=== PATIENT | male | born 1960 | race Caucasian/White ===

== ENCOUNTER 2017-02-25 09:31 | Emergency (ER) | payer MEDICARE, MEDICAID ==
[~2017-02-25] VITALS: Ht 182.9 cm; Wt 68.0 kg
[~2017-02-25 09:31] MED LIST: ALB0.5UD IH; BUDE10.2 INH; ESCI10TA54 PO; HYDR-569 PO; IPRA4AER IH; METH500T6 PO; METO25TA6 PO; OSC500T PO
[2017-02-25 10:37] LABS: BASOPHILS % (AUTO) 0.4 % (0-1); EOSINOPHILS # (AUTO) 0.1 X10'3 (0-0.9); EOSINOPHILS % (AUTO) 0.9 % (0-6); HEMATOCRIT 43.5 % (42.0-52.0); HEMOGLOBIN 14.8 g/dl (14.0-17.9); LYMPHOCYTES # (AUTO) 1.1 X10'3 (1.1-4.8); LYMPHOCYTES % (AUTO) 12.2 % (21-51); MEAN CORPUSCULAR HEMOGLOBIN 33.3 PG (27.0-31.0); MEAN CORPUSCULAR HGB CONC 34.1 % (33.0-36.5); MEAN CORPUSCULAR VOLUME 97.8 FL (78-98); MEAN PLATELET VOLUME 7.9 FL (7.4-10.4); MONOCYTES # (AUTO) 0.9 X10'3 (0-0.9); MONOCYTES % (AUTO) 10.2 % (2-12); NEUTROPHILS # (AUTO) 6.7 X10'3 (1.8-7.7); NEUTROPHILS % (AUTO) 76.3 % (42-75); PLATELET COUNT 201 X10'3 (140-440); RED BLOOD COUNT 4.45 X10'6 (4.70-6.10); RED CELL DISTRIBUTION WIDTH 13.8 % (11.5-14.5); WHITE BLOOD COUNT 8.8 X10'3 (4.5-11.0)
[2017-02-25 10:49] LABS: ALANINE AMINOTRANSFERASE 145 U/L (12-78); ALBUMIN 3.7 G/DL (3.4-5.0); ALBUMIN/GLOBULIN RATIO 0.9 (1.1-1.5); ALKALINE PHOSPHATASE 70 IU/L (46-116); ANION GAP 12 (8-16); ASPARTATE AMINO TRANSFERASE 196 U/L (10-37); BILIRUBIN,TOTAL 0.4 MG/DL (0.1-1.0); BLOOD UREA NITROGEN 12 MG/DL (7-18); BUN/CREATININE RATIO 13.3 (5.4-32.0); CALCIUM 8.5 MG/DL (8.5-10.1); CHLORIDE 99 MMOL/L (99-107); GLUCOSE 248 MG/DL (70-104); POTASSIUM 3.7 MMOL/L (3.5-5.1); SODIUM 138 MMOL/L (135-145); TOTAL CARBON DIOXIDE 27.4 MMOL/L (24-32); TOTAL PROTEIN 7.7 G/DL (6.4-8.2); eGFR 87 ML/MIN
[2017-02-25 10:57] LABS: LIPASE 71 U/L (73-393); MAGNESIUM 1.7 MG/DL (1.5-2.4)
[2017-02-25 12:13] VITALS: BP 139/86
== END 2017-02-25 12:33 | disposition home or self-care (01) ==
LOC: ER 09:32
DX: E16.2 Hypoglycemia, unspecified (principal); I10 Essential (primary) hypertension; I25.10 Atherosclerotic heart disease of native coronary artery without angina pectoris; I25.2 Old myocardial infarction; J43.9 Emphysema, unspecified; G89.29 Other chronic pain; F10.10 Alcohol abuse, uncomplicated; F17.200 Nicotine dependence, unspecified, uncomplicated; I42.2 Other hypertrophic cardiomyopathy; F12.10 Cannabis abuse, uncomplicated; F15.10 Other stimulant abuse, uncomplicated; Z85.9 Personal history of malignant neoplasm, unspecified; Z56.0 Unemployment, unspecified; Z79.899 Other long term (current) drug therapy; Z86.19 Personal history of other infectious and parasitic diseases
CPT/HCPCS: 36415; 80053; 83690; 83735; 83880; 84484; 85025; 93005; 99285

== ENCOUNTER 2017-06-25 08:40 | Emergency (ER) | payer MEDICARE, MEDICAID ==
[~2017-06-25] VITALS: Ht 185.4 cm; Wt 70.0 kg
[2017-06-25] MEDS ORDERED: thiamine 100mg/ml 2ml inj. IV ONE (08:45)
[2017-06-25] MEDS ORDERED: normal saline 1000ML IV soln IVB ONE (08:45)
[2017-06-25] MEDS ORDERED: folic acid 1mg/0.2ml inj IV ONE (08:45)
[2017-06-25 09:04] LABS: BASOPHILS % (AUTO) 0.4 % (0-1); EOSINOPHILS # (AUTO) 0.3 X10'3 (0-0.9); EOSINOPHILS % (AUTO) 2.4 % (0-6); HEMATOCRIT 46.9 % (42.0-52.0); HEMOGLOBIN 16.1 g/dl (14.0-17.9); LYMPHOCYTES # (AUTO) 2.7 X10'3 (1.1-4.8); LYMPHOCYTES % (AUTO) 25.1 % (21-51); MEAN CORPUSCULAR HEMOGLOBIN 33.9 PG (27.0-31.0); MEAN CORPUSCULAR HGB CONC 34.3 % (33.0-36.5); MEAN CORPUSCULAR VOLUME 98.8 FL (78-98); MEAN PLATELET VOLUME 7.5 FL (7.4-10.4); MONOCYTES # (AUTO) 0.5 X10'3 (0-0.9); NEUTROPHILS # (AUTO) 7.3 X10'3 (1.8-7.7); NEUTROPHILS % (AUTO) 67.1 % (42-75); PLATELET COUNT 304 X10'3 (140-440); RED BLOOD COUNT 4.75 X10'6 (4.70-6.10); RED CELL DISTRIBUTION WIDTH 14.8 % (11.5-14.5); WHITE BLOOD COUNT 10.9 X10'3 (4.5-11.0)
[2017-06-25 09:08] VITALS: BP 162/81
[2017-06-25 09:18] LABS: ALANINE AMINOTRANSFERASE 116 U/L (12-78); ALBUMIN 4.1 G/DL (3.4-5.0); ALBUMIN/GLOBULIN RATIO 1.1 (1.1-1.5); ALKALINE PHOSPHATASE 64 IU/L (46-116); ANION GAP 9 (8-16); ASPARTATE AMINO TRANSFERASE 266 U/L (10-37); BILIRUBIN,TOTAL 0.6 MG/DL (0.1-1.0); BLOOD UREA NITROGEN 11 MG/DL (7-18); BUN/CREATININE RATIO 10.7 (5.4-32.0); CALCIUM 8.6 MG/DL (8.5-10.1); CHLORIDE 103 MMOL/L (99-107); CREATININE 1.03 MG/DL (0.60-1.10); ETHANOL 0.223 GM/DL (0.0-0.010); GLUCOSE 73 MG/DL (70-104); LIPASE 87 U/L (73-393); POTASSIUM 3.8 MMOL/L (3.5-5.1); SODIUM 142 MMOL/L (135-145); TOTAL CARBON DIOXIDE 30.5 MMOL/L (24-32); TOTAL PROTEIN 7.7 G/DL (6.4-8.2); eGFR 74 ML/MIN
== END 2017-06-25 11:50 | disposition home or self-care (01) ==
LOC: ER 08:40
DX: F10.120 Alcohol abuse with intoxication, uncomplicated (principal); E11.649 Type 2 diabetes mellitus with hypoglycemia without coma; I25.10 Atherosclerotic heart disease of native coronary artery without angina pectoris; I10 Essential (primary) hypertension; I25.2 Old myocardial infarction; J44.9 Chronic obstructive pulmonary disease, unspecified; G89.29 Other chronic pain; F12.10 Cannabis abuse, uncomplicated; F15.10 Other stimulant abuse, uncomplicated; Z56.0 Unemployment, unspecified
CPT/HCPCS: 36415; 80053; 80178; 80320; 82140; 82948; 83690; 85025; 93005; 96361; 96374; 96375; 99285; J3411; J3490

== ENCOUNTER 2017-09-17 12:00 | Emergency (ER) | payer MEDICARE, MEDICAID ==
[~2017-09-17] VITALS: Ht 185.4 cm; Wt 72.5 kg
[~2017-09-17 12:00] MED LIST changes: -HYDR-569 PO
[2017-09-17 12:18] VITALS: BP 140/80
[2017-09-17] MEDS ORDERED: SULF1TAB49 PO (12:25)
== END 2017-09-17 12:32 | disposition home or self-care (01) ==
LOC: ER 12:01
DX: L08.9 Local infection of the skin and subcutaneous tissue, unspecified (principal); I25.10 Atherosclerotic heart disease of native coronary artery without angina pectoris; I25.2 Old myocardial infarction; J44.9 Chronic obstructive pulmonary disease, unspecified; G89.29 Other chronic pain; I10 Essential (primary) hypertension; F12.90 Cannabis use, unspecified, uncomplicated; F15.90 Other stimulant use, unspecified, uncomplicated; Z56.0 Unemployment, unspecified; Z98.890 Other specified postprocedural states; Z79.899 Other long term (current) drug therapy
CPT/HCPCS: 99283

== ENCOUNTER 2018-05-29 14:27 | Outpatient (CLI) | payer MEDICARE, MEDICAID ==
[2018-05-29] MEDS ORDERED: ALPR-624 PO (16:44)
[2018-05-29] MEDS ORDERED: PREG50CA PO (16:44)
[2018-05-29] MEDS ORDERED: METO25TA6 PO (16:44)
[2018-05-29] MEDS ORDERED: CARB1TAB23 PO (16:44)
[2018-05-29] MEDS ORDERED: TRAZ-219 PO (16:44)
[2018-05-29] MEDS ORDERED: DICL75TA5 PO (16:44)
[2018-05-29] MEDS ORDERED: ALBU18HF2 INH (16:44)
[2018-05-29] MEDS ORDERED: GUAI1TBM19 PO (16:44)
[2018-05-29] MEDS ORDERED: GUAI120015 PO (16:44)
[2018-05-29] MEDS ORDERED: BACL10TA PO (16:44)
[2018-05-29] MEDS ORDERED: DOCU100C41 PO (16:44)
[2018-05-29] MEDS ORDERED: TRAM50TA2 PO (16:44)
[2018-05-29] MEDS ORDERED: FLUT1BLS3 (16:44)
[2018-05-29] MEDS ORDERED: GUAI600T45 PO (16:44)
[2018-05-29] MEDS ORDERED: OXYC-511 PO (16:44)
[2018-05-29] MEDS ORDERED: LIT300C PO (16:44)
[2018-05-29] MEDS ORDERED: IPRA4AER IH (16:44)
[2018-05-29] MEDS ORDERED: ALBU8.5H8 INH (16:44)
[2018-05-29 17:03] LABS: BASOPHILS # (AUTO) 0.1 X10'3 (0-0.2); BASOPHILS % (AUTO) 0.8 % (0-1); EOSINOPHILS # (AUTO) 0.2 X10'3 (0-0.9); EOSINOPHILS % (AUTO) 2.2 % (0-6); LYMPHOCYTES # (AUTO) 2.9 X10'3 (1.1-4.8); LYMPHOCYTES % (AUTO) 41.3 % (21-51); MEAN CORPUSCULAR HGB CONC 33.7 g/dL (33.0-36.5); MEAN CORPUSCULAR VOLUME 94.8 FL (78-98); MEAN PLATELET VOLUME 8.6 FL (7.4-10.4); MONOCYTES # (AUTO) 0.7 X10'3 (0-0.9); MONOCYTES % (AUTO) 9.6 % (2-12); NEUTROPHILS # (AUTO) 3.3 X10'3 (1.8-7.7); NEUTROPHILS % (AUTO) 46.1 % (42-75); PRE OP HEMATOCRIT 41.8 % (42.0-52.0); PRE OP HEMOGLOBIN 14.1 g/dL (14.0-17.9); PRE OP PLATELET COUNT 240 X10'3 (140-440); RED BLOOD COUNT 4.41 X10'6 (4.70-6.10); RED CELL DISTRIBUTION WIDTH 13.9 % (11.5-14.5)
[2018-05-29 17:07] LABS: ALBUMIN 4.1 G/DL (3.4-5.0); ALBUMIN/GLOBULIN RATIO 1.3 (1.1-1.5); ALKALINE PHOSPHATASE 91 IU/L (46-116); BLOOD UREA NITROGEN 14 MG/DL (7-18); BUN/CREATININE RATIO 15.4 (5.4-32.0); CALCIUM 8.9 MG/DL (8.5-10.1); CHLORIDE 102 MMOL/L (99-107); CREATININE 0.91 MG/DL (0.60-1.10); PRE OP ALT 30 U/L (30-65); PRE OP ANION GAP 7 (8-16); PRE OP AST 54 U/L (10-37); PRE OP BILIRUB, TOTAL 0.7 MG/DL (0.0-1.0); PRE OP GLUCOSE 88 MG/DL (70-104); PRE OP POTASSIUM 3.9 MMOL/L (3.4-5.1); PRE OP SODIUM 139 MMOL/L (135-145); TOTAL CARBON DIOXIDE 29.8 MMOL/L (24-32); TOTAL PROTEIN 7.2 G/DL (6.4-8.2); eGFR 86 ML/MIN
== END 2018-05-29 23:59 | disposition home or self-care (01) ==
LOC: PRE-OP 14:27 → EDSTATUS 05-31 07:30
PROVIDERS: ATTEND Orthopaedic Surgery Hand Surgery
DX: Z01.818 Encounter for other preprocedural examination (principal); G56.23 Lesion of ulnar nerve, bilateral upper limbs; G56.03 Carpal tunnel syndrome, bilateral upper limbs
CPT/HCPCS: 36415; 80053; 85025; 93005

== ENCOUNTER 2018-07-26 07:52 | Day surgery (SDC) | payer MEDICARE, MEDICAID ==
[2018-07-26] VITALS (8 sets, daily range): BP systolic 103–112; BP diastolic 66–77
[~2018-07-26] VITALS: Ht 182.9 cm; Wt 76.0 kg
[~2018-07-26 07:52] MED LIST changes: -ALB0.5UD IH; +ALBU18HF2 INH; +ALBU8.5H8 INH; +ALPR-624 PO; +BACL10TA PO; -BUDE10.2 INH; +BUPIVAcaine/PF 2.5mg/ml (0.25%) 10ml vial ONE; +CARB1TAB23 PO; +DICL75TA5 PO; +DOCU100C41 PO; -ESCI10TA54 PO; +FLUT1BLS3; +GUAI600T45 PO; +HYDR-3686 PO; +LIT300C PO; -METH500T6 PO; -OSC500T PO; +OXYC-511 PO; +PREG50CA PO; +TRAM50TA2 PO; +TRAZ-219 PO
[2018-07-26] MEDS ORDERED: ceFAZolin 1GM/D5W- ADD-VANTAGE 50 ML IV ONE (08:45)
[2018-07-26] MEDS ORDERED: DOCUMENT DATE & TIME OF BETA-BLOCKER PO ONE (08:45)
[2018-07-26] MEDS ORDERED: famotidine 20mg tablet PO ONE (08:45)
[2018-07-26] MEDS ORDERED: ringers solution, lacted 1,000 ML IV SCH (08:45)
[2018-07-26 09:05] LABS: BASOPHILS % (AUTO) 0.6 % (0-1); EOSINOPHILS # (AUTO) 0.3 X10'3 (0-0.9); EOSINOPHILS % (AUTO) 3.8 % (0-6); LYMPHOCYTES # (AUTO) 1.7 X10'3 (1.1-4.8); LYMPHOCYTES % (AUTO) 21.1 % (21-51); MEAN CORPUSCULAR HEMOGLOBIN 32.7 PG (27.0-31.0); MEAN CORPUSCULAR HGB CONC 33.9 g/dL (33.0-36.5); MEAN CORPUSCULAR VOLUME 96.5 FL (78-98); MEAN PLATELET VOLUME 8.1 FL (7.4-10.4); MONOCYTES # (AUTO) 0.7 X10'3 (0-0.9); MONOCYTES % (AUTO) 9.2 % (2-12); NEUTROPHILS # (AUTO) 5.1 X10'3 (1.8-7.7); NEUTROPHILS % (AUTO) 65.3 % (42-75); PRE OP HEMATOCRIT 39.9 % (42.0-52.0); PRE OP HEMOGLOBIN 13.5 g/dL (14.0-17.9); PRE OP PLATELET COUNT 213 X10'3 (140-440); RED BLOOD COUNT 4.13 X10'6 (4.70-6.10); RED CELL DISTRIBUTION WIDTH 14.3 % (11.5-14.5)
[2018-07-26 09:15] LABS: ALBUMIN 3.6 G/DL (3.4-5.0); ALBUMIN/GLOBULIN RATIO 1.2 (1.1-1.5); ALKALINE PHOSPHATASE 79 IU/L (46-116); BLOOD UREA NITROGEN 11 MG/DL (7-18); CHLORIDE 105 MMOL/L (99-107); CREATININE 0.92 MG/DL (0.60-1.10); PRE OP ALT 29 U/L (30-65); PRE OP ANION GAP 5 (8-16); PRE OP AST 91 U/L (10-37); PRE OP BILIRUB, TOTAL 0.9 MG/DL (0.0-1.0); PRE OP GLUCOSE 91 MG/DL (70-104); PRE OP POTASSIUM 4.1 MMOL/L (3.4-5.1); PRE OP SODIUM 139 MMOL/L (135-145); TOTAL CARBON DIOXIDE 28.8 MMOL/L (24-32); TOTAL PROTEIN 6.7 G/DL (6.4-8.2); eGFR 84 ML/MIN
[2018-07-26] MEDS ORDERED: LIDOcaine 0.5% (5mg/ml) 50ml vial ONE (09:44)
[2018-07-26] MEDS ORDERED: fentaNYL/PF 50MCG/1 ML 2ML syringe ONE (09:53)
[2018-07-26] MEDS ORDERED: midazolam 2 mg/2 ml injection ONE (09:57)
--- NOTE | 2018-07-26 10:20 | NUR ---
Received from OR via BED, accompanied by Anesthesiologist DR COPELAND and report given by Anesthesiolgist. PATIENT A&OX4, DENIES PAIN, V/S WNL, NEUROVASCULAR CHECKS INTACT, 20G PIV LUE, SCD ON, DRESSING TO RIGHT WRIST CDI ELEVATED WITH ICEBAG APPLIED.
--- NOTE | 2018-07-26 11:00 | NUR ---
PATIENT A&OX4, DENIES PAIN, V/S WNL, NEUROVASCULAR CHECKS INTACT, 20G PIV LUE D/C, SCD OFF, DRESSING TO RIGHT WRIST CDI ELEVATED WITH ICEBAG APPLIED. I HAVE REVIEWED D/C INSTRUCTIONS WITH PATIENT AND FAMILY AND THEY HAVE VERBALIZED UNDERSTANDING. PATIENT D/C HOME WITH ALL BELONGINGS AND FAMILY GAVE TRANSPORT HOME.
== END 2018-07-26 11:00 | disposition home or self-care (01) ==
LOC: PAS 07:52
PROVIDERS: ATTEND Orthopaedic Surgery Hand Surgery
DX: G56.01 Carpal tunnel syndrome, right upper limb (principal); F17.210 Nicotine dependence, cigarettes, uncomplicated; J43.9 Emphysema, unspecified; I10 Essential (primary) hypertension; I25.2 Old myocardial infarction; F41.9 Anxiety disorder, unspecified; M19.90 Unspecified osteoarthritis, unspecified site; G20 Parkinson's disease; Z98.890 Other specified postprocedural states; Z72.89 Other problems related to lifestyle; Z88.8 Allergy status to other drugs, medicaments and biological substances; Z85.72 Personal history of non-Hodgkin lymphomas
CPT/HCPCS: 29848; 36415; 80053; 85025; 93005; J0690; J2001; J2250; J3010; J3490; A6449; A7000; J7120

== ENCOUNTER 2018-09-22 00:28 | Inpatient (IN) | payer MEDICARE, MEDICAID ==
[~2018-09-22] VITALS: Ht 188 cm; Wt 70.0 kg
[~2018-09-22 00:28] MED LIST changes: -BUPIVAcaine/PF 2.5mg/ml (0.25%) 10ml vial ONE
[2018-09-22 01:51] LABS: BASOPHILS # (AUTO) 0.1 X10'3 (0-0.2); BASOPHILS % (AUTO) 0.4 % (0-1); EOSINOPHILS # (AUTO) 0.3 X10'3 (0-0.9); EOSINOPHILS % (AUTO) 2.2 % (0-6); HEMATOCRIT 39.5 % (42.0-52.0); HEMOGLOBIN 13.3 g/dl (14.0-17.9); LYMPHOCYTES # (AUTO) 1.8 X10'3 (1.1-4.8); MEAN CORPUSCULAR HEMOGLOBIN 34.1 PG (27.0-31.0); MEAN CORPUSCULAR HGB CONC 33.7 g/dL (33.0-36.5); MEAN CORPUSCULAR VOLUME 101.2 FL (78-98); MEAN PLATELET VOLUME 9.6 FL (7.4-10.4); MONOCYTES # (AUTO) 1.1 X10'3 (0-0.9); MONOCYTES % (AUTO) 8.8 % (2-12); NEUTROPHILS % (AUTO) 73.6 % (42-75); PLATELET COUNT 150 X10'3 (140-440); RED CELL DISTRIBUTION WIDTH 14.6 % (11.5-14.5); WHITE BLOOD COUNT 12.2 X10'3 (4.5-11.0)
[2018-09-22 02:05] LABS: PARTIAL THROMBOPLASTIN TIME 28 SECONDS (22-32)
[2018-09-22 02:07] LABS: ALANINE AMINOTRANSFERASE 40 U/L (12-78); ALBUMIN 3.5 G/DL (3.4-5.0); ALBUMIN/GLOBULIN RATIO 1.2 (1.1-1.5); ALKALINE PHOSPHATASE 72 IU/L (46-116); ANION GAP 8 (8-16); ASPARTATE AMINO TRANSFERASE 64 U/L (10-37); BILIRUBIN,TOTAL 1.4 MG/DL (0.1-1.0); BLOOD UREA NITROGEN 14 MG/DL (7-18); BUN/CREATININE RATIO 18.7 (5.4-32.0); CALCIUM 8.9 MG/DL (8.5-10.1); CHLORIDE 109 MMOL/L (99-107); CREATININE 0.75 MG/DL (0.60-1.10); GLUCOSE 93 MG/DL (70-104); POTASSIUM 3.9 MMOL/L (3.5-5.1); SODIUM 143 MMOL/L (135-145); TOTAL CARBON DIOXIDE 26.2 MMOL/L (24-32); TOTAL PROTEIN 6.5 G/DL (6.4-8.2); eGFR > 90 ML/MIN
[2018-09-22] MEDS ORDERED: BISA10SU60 RC (02:23)
--- NOTE | 2018-09-22 02:34 | NUR ---
DR PULIDO AT BEDSIDE WITH PT DOING MEDICAL EXAM
[2018-09-22] MEDS ORDERED: albuterol 2.5 mg/0.5ml nebule NEB ONE (02:35)
[2018-09-22] MEDS ORDERED: normal saline 1000ML IV soln IVB ONE (02:35)
[2018-09-22] MEDS ORDERED: albuterol 2.5 MG/3 ML nebule NEB ONE (02:40)
[2018-09-22 02:51] LABS: MAGNESIUM 1.9 MG/DL (1.5-2.4)
[2018-09-22] MEDS ORDERED: iohexol 350MG/ML 100ml bottle IV ONE (02:53)
--- NOTE | 2018-09-22 02:53 | NUR ---
RT AT BEDSIDE WITH PT, BLANKET PROVIDED. WILL CONTINUE TO MONITOR
[2018-09-22 02:55] LABS: ABG BASE EXCESS -0.4 mmol/L (-2.0-3.0); ABG HCO3 24.5 mmol/L (22.0-26.0); ABG PH (T) 7.394 (7.350-7.450); ABG PO2 (T) 60.4 mmHg (83-108); ALLEN'S TEST Positive; FCOHb 1.5 % (0.5-1.5); FMetHb 0.3 % (0.3-1.12); FO2Hb 90.3 % (94-100); TOTAL HEMOGLOBIN 13.4 G/dl (14.0-18.0)
[2018-09-22 02:55] LABS: ETHANOL < 0.010 GM/DL (0.0-0.010)
[2018-09-22] MEDS ORDERED: azithromycin/NS 500mg/250ml 250 ML IV ONE (04:45)
[2018-09-22] MEDS ORDERED: CefTRIAXone 2gm/D5W 50ml 50 ML IV ONE (04:45)
[2018-09-22] MEDS ORDERED: methylPREDNISolone sod succ 125mg/2ml vial IV ONE (05:05)
[2018-09-22 05:08] LABS: URINE AMPHETAMINE SCREEN NEGATIVE (Neg); URINE BARBITUATE SCREEN NEGATIVE (Neg); URINE BENZODIAZEPINES SCREEN POSITIVE (Neg); URINE CANNABINOID SCREEN POSITIVE (Neg); URINE COCAINE SCREEN NEGATIVE (Neg); URINE METHADONE SCREEN NEGATIVE (Neg); URINE OPIATE SCREEN POSITIVE (Neg); URINE PHENCYCLIDINE SCREEN NEGATIVE (Neg)
[2018-09-22] MEDS ORDERED: magnesium 4gm in 100ml NS 100 ML IV PRN (06:00)
[2018-09-22] MEDS ORDERED: potassium Cl 20 mEq SR tablet PO PRN ×2 (06:00)
[2018-09-22] MEDS ORDERED: acetaminophen 325mg tablet PO PRN (06:00)
[2018-09-22] MEDS ORDERED: magnesium Cl slow-release 64mg tablet PO PRN (06:00)
[2018-09-22] MEDS ORDERED: ipratropium/albuterol 3ml nebule NEB PRN (06:00)
[2018-09-22] MEDS ORDERED: magnesium 2GM in 50ml NS 50 ML IV PRN (06:00)
[2018-09-22] MEDS ORDERED: potassium CL 10mEq/100ml bag 100 ML IV PRN ×2 (06:00)
[2018-09-22] MEDS ORDERED: ondansetron/PF 4mg/2ml inj IV PRN (06:00)
[2018-09-22] MEDS ORDERED: TRAM50TA2 PO (06:07)
[2018-09-22] MEDS ORDERED: ASPI-1265 PO (06:07)
[2018-09-22] MEDS: K and/or MAG REPLACEMENT MC SCH (08:20)
[2018-09-22] MEDS: heparin, porcine 5000 units/ml vial SQ SCH ×2 (08:23→20:43)
[2018-09-22 09:20] VITALS: BP 120/64
[2018-09-22 11:00] VITALS: BP 102/72
[2018-09-22] MEDS ORDERED: non-formulary drug (Albuterol Sulfate (Proair Hfa) 2 PUFFS) INH SCH (12:35)
[2018-09-22] MEDS ORDERED: albuterol 2.5 MG/3 ML nebule NEB PRN (12:40)
[2018-09-22] MEDS: carbidoba-levodopa 25-100mg tablet PO SCH ×2 (12:57→20:42)
[2018-09-22] MEDS: hydrOXYzine 25 MG tablet PO SCH ×3 (12:58→20:42)
[2018-09-22] MEDS: levoFLOXACIN-Levaquin 500mg/D5 100 ML IV SCH (12:58)
[2018-09-22] MEDS: baclofen 10mg tablet PO SCH (16:39)
--- NOTE | 2018-09-22 18:30 | NUR ---
Problems reprioritized. Patient report given, questions answered & plan of care reviewed with Berta WALSH.
--- NOTE | 2018-09-22 18:37 | NUR ---
Received report from JILLIAN Linares. Patient is awake and alert on room air, in no apparent distress. Call light and items of frequent use within reach. Will continue to monitor.
[2018-09-22 20:00] VITALS: BP 134/77
[2018-09-22] MEDS ORDERED: non-formulary drug (Albuterol Sulfate (Ventolin Hfa) 2 PUFFS) INH SCH (20:00)
[2018-09-22] MEDS: docusate sod 100mg capsule PO SCH (20:42)
[2018-09-22] MEDS: lactobacillus rhamnosus 10,000 MMU CELLS/CAPSULE PO SCH (20:42)
[2018-09-22] MEDS: albuterol 2.5 MG/3 ML nebule NEB SCH (21:08)
--- NOTE | 2018-09-22 23:35 | NUR ---
Patient in room [facility]. I have received report from Berta Salazar and had the opportunity to ask questions and assume patient care.
--- NOTE | 2018-09-22 23:38 | NUR ---
Problems reprioritized. Patient report given, questions answered & plan of care reviewed with JILLIAN Veronica.
[2018-09-23] VITALS: BP 144/72
[2018-09-23] MEDS: baclofen 10mg tablet PO SCH ×3 (00:43→17:50)
--- NOTE | 2018-09-23 00:43 | NUR ---
pt medicated with baclofen dose as ordered. pt had shared he thought someone in the mirror was after him. explained the light with the iv pole to the pt and taped to dry flows to the mirror so pt could rest. mirror was across form his bed facing him. pt thanked us for explaining it and for covering the mirror up.
--- NOTE | 2018-09-23 02:50 | NUR ---
Patient in room [facility]. I have received report from Berta Salazar and had the opportunity to ask questions and assume patient care. Addendum: 09/23/18 at 0251 by Glenys Jeter RN Amended: Links added.
--- NOTE | 2018-09-23 02:58 | NUR ---
pt resting eyes closed at this time. had recieved report at 2392 from Berta Salazar
--- NOTE | 2018-09-23 04:39 | NUR ---
pt resting eyes closed without s&s of distress.
--- NOTE | 2018-09-23 05:06 | NUR ---
pt a/o voiding in urinal dk mauricio colored.
[2018-09-23 05:16] LABS: BASOPHILS # (AUTO) 0.1 X10'3 (0-0.2); BASOPHILS % (AUTO) 0.5 % (0-1); EOSINOPHILS % (AUTO) 0.1 % (0-6); HEMATOCRIT 37.5 % (42.0-52.0); HEMOGLOBIN 12.4 g/dl (14.0-17.9); LYMPHOCYTES # (AUTO) 2.1 X10'3 (1.1-4.8); LYMPHOCYTES % (AUTO) 16.3 % (21-51); MEAN CORPUSCULAR HEMOGLOBIN 33.8 PG (27.0-31.0); MEAN CORPUSCULAR HGB CONC 33.1 g/dL (33.0-36.5); MEAN PLATELET VOLUME 9.4 FL (7.4-10.4); MONOCYTES # (AUTO) 1.3 X10'3 (0-0.9); MONOCYTES % (AUTO) 10.3 % (2-12); NEUTROPHILS # (AUTO) 9.3 X10'3 (1.8-7.7); NEUTROPHILS % (AUTO) 72.8 % (42-75); PLATELET COUNT 163 X10'3 (140-440); RED BLOOD COUNT 3.68 X10'6 (4.70-6.10); RED CELL DISTRIBUTION WIDTH 14.7 % (11.5-14.5); WHITE BLOOD COUNT 12.8 X10'3 (4.5-11.0)
[2018-09-23 05:21] LABS: ALBUMIN 3.5 G/DL (3.4-5.0); ANION GAP 7 (8-16); BLOOD UREA NITROGEN 10 MG/DL (7-18); BUN/CREATININE RATIO 11.8 (5.4-32.0); CALCIUM 9.5 MG/DL (8.5-10.1); CHLORIDE 107 MMOL/L (99-107); CREATININE 0.85 MG/DL (0.60-1.10); GLUCOSE 103 MG/DL (70-104); POTASSIUM 3.8 MMOL/L (3.5-5.1); SODIUM 143 MMOL/L (135-145); TOTAL CARBON DIOXIDE 28.7 MMOL/L (24-32); eGFR > 90 ML/MIN
--- NOTE | 2018-09-23 06:48 | NUR ---
Problems reprioritized. Patient report given, questions answered & plan of care reviewed with Brandee Nascimento. Addendum: 09/23/18 at 0649 by Glenys Jeter RN Amended: Links added.
[2018-09-23 07:00] VITALS: BP 147/90
[2018-09-23] MEDS: albuterol 2.5 MG/3 ML nebule NEB SCH ×2 (07:20→19:44)
[2018-09-23] MEDS ORDERED: DICLOFENAC 75 MG PO SCH (08:00)
[2018-09-23] MEDS ORDERED: non-formulary drug (Pregabalin (Lyrica) 1 CAP) PO SCH (08:00)
[2018-09-23] MEDS: K and/or MAG REPLACEMENT MC SCH (08:00)
[2018-09-23] MEDS ORDERED: non-formulary drug (Diclofenac Sodium 1 TAB) PO SCH (08:00)
[2018-09-23] MEDS: pregabalin 25mg capsule PO SCH (09:03)
[2018-09-23] MEDS: docusate sod 100mg capsule PO SCH ×2 (09:03→21:01)
[2018-09-23] MEDS: aspirin 81mg tab.chew PO SCH (09:04)
[2018-09-23] MEDS: hydrOXYzine 25 MG tablet PO SCH ×4 (09:04→21:01)
[2018-09-23] MEDS: lactobacillus rhamnosus 10,000 MMU CELLS/CAPSULE PO SCH ×2 (09:04→21:01)
[2018-09-23] MEDS: carbidoba-levodopa 25-100mg tablet PO SCH ×3 (09:04→21:01)
[2018-09-23] MEDS: metoprolol tartrate 25mg tablet PO SCH (09:09)
[2018-09-23] MEDS: heparin, porcine 5000 units/ml vial SQ SCH ×2 (09:09→21:03)
[2018-09-23] MEDS: lithium carbonate 300mg SR tablet (LithoBID) PO SCH (09:30)
[2018-09-23 11:00] VITALS: BP 145/80
[2018-09-23] MEDS: levoFLOXACIN-Levaquin 500mg/D5 100 ML IV SCH (11:50)
[2018-09-23 18:00] VITALS: BP 135/76
--- NOTE | 2018-09-23 18:05 | NUR ---
Patient in room [facility]. I have received report from Dang Salazar and had the opportunity to ask questions and assume patient care. Addendum: 09/23/18 at 1933 by Glenys Jeter RN Amended: Links added.
--- NOTE | 2018-09-23 18:25 | NUR ---
Patient in room [facility]. I have received report from Dang Salazar and had the opportunity to ask questions and assume patient care. Addendum: 09/23/18 at 1939 by Glenys Jeter RN Amended: Links added.
[2018-09-23] MEDS: DICLOFENAC 75 MG PO SCH (20:00)
--- NOTE | 2018-09-23 21:06 | NUR ---
pt refused diclofenac 75mg med dose stating that the Md pt has said to stop taking it as it was a conflict with another medication he is taking but not sure which one.
--- NOTE | 2018-09-23 23:20 | NUR ---
pt a/o watching tv quietly
[2018-09-24] VITALS: BP_SYST 130; BP_SYST 176; BP_DIAS 78; BP_DIAS 82
--- NOTE | 2018-09-24 00:30 | NUR ---
pt awake and took his baclofen had drank another pitcher of water and refilled for him at this time.
[2018-09-24] MEDS: baclofen 10mg tablet PO SCH ×3 (00:38→17:57)
--- NOTE | 2018-09-24 02:20 | NUR ---
resting eyes closed without changes
--- NOTE | 2018-09-24 03:51 | NUR ---
pt resting eyes closed without changes.
[2018-09-24 04:45] LABS: BASOPHILS # (AUTO) 0.1 X10'3 (0-0.2); BASOPHILS % (AUTO) 0.6 % (0-1); EOSINOPHILS # (AUTO) 0.2 X10'3 (0-0.9); EOSINOPHILS % (AUTO) 1.8 % (0-6); HEMATOCRIT 40.2 % (42.0-52.0); HEMOGLOBIN 13.3 g/dl (14.0-17.9); LYMPHOCYTES # (AUTO) 2.6 X10'3 (1.1-4.8); LYMPHOCYTES % (AUTO) 28.5 % (21-51); MEAN CORPUSCULAR HEMOGLOBIN 33.8 PG (27.0-31.0); MEAN CORPUSCULAR HGB CONC 33.1 g/dL (33.0-36.5); MEAN CORPUSCULAR VOLUME 102.1 FL (78-98); MEAN PLATELET VOLUME 9.5 FL (7.4-10.4); MONOCYTES % (AUTO) 10.9 % (2-12); NEUTROPHILS # (AUTO) 5.3 X10'3 (1.8-7.7); NEUTROPHILS % (AUTO) 58.2 % (42-75); PLATELET COUNT 177 X10'3 (140-440); RED BLOOD COUNT 3.94 X10'6 (4.70-6.10); RED CELL DISTRIBUTION WIDTH 15.1 % (11.5-14.5); WHITE BLOOD COUNT 9.2 X10'3 (4.5-11.0)
[2018-09-24 05:02] LABS: ALBUMIN 3.5 G/DL (3.4-5.0); ANION GAP 7 (8-16); BLOOD UREA NITROGEN 8 MG/DL (7-18); BUN/CREATININE RATIO 10.1 (5.4-32.0); CALCIUM 8.9 MG/DL (8.5-10.1); CHLORIDE 107 MMOL/L (99-107); CREATININE 0.79 MG/DL (0.60-1.10); GLUCOSE 98 MG/DL (70-104); MAGNESIUM 1.8 MG/DL (1.5-2.4); POTASSIUM 3.7 MMOL/L (3.5-5.1); SODIUM 144 MMOL/L (135-145); TOTAL CARBON DIOXIDE 29.9 MMOL/L (24-32); eGFR > 90 ML/MIN
--- NOTE | 2018-09-24 05:56 | NUR ---
pt awake had voided 350 in the urinal med colored urine. talked about the possibility of going home.
--- NOTE | 2018-09-24 06:29 | NUR ---
Problems reprioritized. Patient report given, questions answered & plan of care reviewed with Rashida Salazar. Addendum: 09/24/18 at 0630 by Glenys Jeter RN Amended: Links added.
[2018-09-24] MEDS: docusate sod 100mg capsule PO SCH ×2 (07:44→19:41)
[2018-09-24] MEDS: lactobacillus rhamnosus 10,000 MMU CELLS/CAPSULE PO SCH ×2 (07:44→19:40)
[2018-09-24] MEDS: pregabalin 25mg capsule PO SCH (07:44)
[2018-09-24] MEDS: hydrOXYzine 25 MG tablet PO SCH ×4 (07:45→20:56)
[2018-09-24] MEDS: lithium carbonate 300mg SR tablet (LithoBID) PO SCH (07:45)
[2018-09-24] MEDS: aspirin 81mg tab.chew PO SCH (07:45)
[2018-09-24] MEDS: carbidoba-levodopa 25-100mg tablet PO SCH ×3 (07:45→20:55)
[2018-09-24] MEDS: heparin, porcine 5000 units/ml vial SQ SCH ×2 (07:45→19:41)
[2018-09-24] MEDS: metoprolol tartrate 25mg tablet PO SCH (07:46)
[2018-09-24 07:54] VITALS: BP 136/89
[2018-09-24] MEDS: DICLOFENAC 75 MG PO SCH ×2 (08:00→19:45)
[2018-09-24] MEDS: K and/or MAG REPLACEMENT MC SCH (08:00)
[2018-09-24] MEDS: albuterol 2.5 MG/3 ML nebule NEB SCH ×2 (08:04→19:32)
[2018-09-24 11:43] VITALS: BP 136/67
[2018-09-24] MEDS: levoFLOXACIN-Levaquin 500mg/D5 100 ML IV SCH (12:38)
--- NOTE | 2018-09-24 18:00 | NUR ---
Patient in room [facility] 354C. I have received report from JILLIAN Field and had the opportunity to ask questions and assume patient care.
--- NOTE | 2018-09-24 18:07 | NUR ---
Problems reprioritized. Patient report given, questions answered & plan of care reviewed with JILLIAN Putnam.
[2018-09-24 20:00] VITALS: BP 135/71
[2018-09-25] VITALS: BP 143/90
[2018-09-25] MEDS: baclofen 10mg tablet PO SCH ×2 (00:06→08:07)
[2018-09-25 04:55] LABS: BASOPHILS % (AUTO) 0.4 % (0-1); EOSINOPHILS # (AUTO) 0.3 X10'3 (0-0.9); EOSINOPHILS % (AUTO) 3.3 % (0-6); HEMATOCRIT 41.8 % (42.0-52.0); HEMOGLOBIN 14.1 g/dl (14.0-17.9); LYMPHOCYTES % (AUTO) 34.3 % (21-51); MEAN CORPUSCULAR HGB CONC 33.7 g/dL (33.0-36.5); MEAN CORPUSCULAR VOLUME 100.9 FL (78-98); MEAN PLATELET VOLUME 9.1 FL (7.4-10.4); MONOCYTES # (AUTO) 1.2 X10'3 (0-0.9); MONOCYTES % (AUTO) 14.3 % (2-12); NEUTROPHILS # (AUTO) 4.1 X10'3 (1.8-7.7); NEUTROPHILS % (AUTO) 47.7 % (42-75); PLATELET COUNT 190 X10'3 (140-440); RED BLOOD COUNT 4.14 X10'6 (4.70-6.10); RED CELL DISTRIBUTION WIDTH 14.8 % (11.5-14.5); WHITE BLOOD COUNT 8.6 X10'3 (4.5-11.0)
[2018-09-25 05:18] LABS: ALBUMIN 3.8 G/DL (3.4-5.0); ANION GAP 9 (8-16); BLOOD UREA NITROGEN 10 MG/DL (7-18); BUN/CREATININE RATIO 14.1 (5.4-32.0); CALCIUM 9.3 MG/DL (8.5-10.1); CHLORIDE 107 MMOL/L (99-107); CREATININE 0.71 MG/DL (0.60-1.10); GLUCOSE 88 MG/DL (70-104); POTASSIUM 3.7 MMOL/L (3.5-5.1); SODIUM 145 MMOL/L (135-145); TOTAL CARBON DIOXIDE 29.3 MMOL/L (24-32); eGFR > 90 ML/MIN
[2018-09-25 06:00] VITALS: BP 150/80
--- NOTE | 2018-09-25 06:15 | NUR ---
Problems reprioritized. Patient report given, questions answered & plan of care reviewed with JILLIAN Andrade.
--- NOTE | 2018-09-25 06:36 | NUR ---
Patient in room [facility]. I have received report from [place] WALSH and had the opportunity to ask questions and assume patient care.
[2018-09-25] MEDS: albuterol 2.5 MG/3 ML nebule NEB SCH (07:37)
[2018-09-25] MEDS: K and/or MAG REPLACEMENT MC SCH (08:00)
[2018-09-25] MEDS: DICLOFENAC 75 MG PO SCH (08:00)
[2018-09-25] MEDS: lactobacillus rhamnosus 10,000 MMU CELLS/CAPSULE PO SCH (08:08)
[2018-09-25] MEDS: carbidoba-levodopa 25-100mg tablet PO SCH (08:08)
[2018-09-25] MEDS: pregabalin 25mg capsule PO SCH (08:08)
[2018-09-25] MEDS: aspirin 81mg tab.chew PO SCH (08:08)
[2018-09-25 08:09] VITALS: BP_SYST 141
[2018-09-25] MEDS: metoprolol tartrate 25mg tablet PO SCH (08:09)
[2018-09-25] MEDS: hydrOXYzine 25 MG tablet PO SCH (08:09)
[2018-09-25] MEDS: docusate sod 100mg capsule PO SCH (08:09)
[2018-09-25] MEDS: lithium carbonate 300mg SR tablet (LithoBID) PO SCH (08:09)
[2018-09-25] MEDS: heparin, porcine 5000 units/ml vial SQ SCH (08:10)
--- NOTE | 2018-09-25 11:05 | NUR ---
d/c education provided including follow up and medications; all questions answered. pt removed from tele monitoring and IV removed; cannula intact. pt wheeled down with all belongings.
== END 2018-09-25 11:18 | disposition home or self-care (01) | DRG 91 ==
LOC: ER 00:29 → SUR 3N 09:15
PROVIDERS: ADMIT Internal Medicine; ATTEND Internal Medicine
PROC: B32T1ZZ Computerized Tomography (CT Scan) of Left Pulmonary Artery using Low Osmolar Contrast (ICD-10-PCS; principal; 2018-09-22)
PROC: B3201ZZ Computerized Tomography (CT Scan) of Thoracic Aorta using Low Osmolar Contrast (ICD-10-PCS; 2018-09-22)
PROC: B32S1ZZ Computerized Tomography (CT Scan) of Right Pulmonary Artery using Low Osmolar Contrast (ICD-10-PCS; 2018-09-22)
DX: G92 Toxic encephalopathy (principal); J18.9 Pneumonia, unspecified organism; J96.20 Acute and chronic respiratory failure, unspecified whether with hypoxia or hypercapnia; F11.20 Opioid dependence, uncomplicated; B18.2 Chronic viral hepatitis C; F12.90 Cannabis use, unspecified, uncomplicated; F32.9 Major depressive disorder, single episode, unspecified; F41.9 Anxiety disorder, unspecified; G89.4 Chronic pain syndrome; J43.9 Emphysema, unspecified; I10 Essential (primary) hypertension; I25.10 Atherosclerotic heart disease of native coronary artery without angina pectoris; I25.2 Old myocardial infarction; Z59.0 Homelessness; Z85.72 Personal history of non-Hodgkin lymphomas; Z87.891 Personal history of nicotine dependence; Z88.8 Allergy status to other drugs, medicaments and biological substances; Z83.3 Family history of diabetes mellitus; Z82.49 Family history of ischemic heart disease and other diseases of the circulatory system; Z82.5 Family history of asthma and other chronic lower respiratory diseases; Z82.41 Family history of sudden cardiac death; Z79.899 Other long term (current) drug therapy
CPT/HCPCS: 36415; 36600; 70450; 71045; 71275; 80048; 80053; 80305; 80320; 82803; 82948; 83735; 84484; 85018; 85025; 85610; 85730; 87081; 93005; 94640; 94760; 97110; 97116; 97161; 97530; 99285; G0378; J0456; J0696; J1644; J1956; J2930; J7611; Q9967; Z7610

== ENCOUNTER 2019-02-07 01:21 | Emergency (ER) | payer MEDICARE, MEDICAID ==
[~2019-02-07] VITALS: Ht 182.9 cm; Wt 63.6 kg
[~2019-02-07 01:21] MED LIST changes: -ALBU18HF2 INH; +ASPI-1265 PO; +BISA10SU60 RC
[2019-02-07] MEDS ORDERED: ipratropium/albuterol 3ml nebule NEB ONE (02:15)
[2019-02-07 02:21] LABS: BASOPHILS # (AUTO) 0.1 X10'3 (0-0.2); EOSINOPHILS # (AUTO) 0.2 X10'3 (0-0.9); EOSINOPHILS % (AUTO) 3.8 % (0-6); HEMATOCRIT 38.6 % (42.0-52.0); HEMOGLOBIN 12.8 g/dl (14.0-17.9); LYMPHOCYTES # (AUTO) 1.7 X10'3 (1.1-4.8); LYMPHOCYTES % (AUTO) 31.2 % (21-51); MEAN CORPUSCULAR HGB CONC 33.2 g/dL (33.0-36.5); MEAN CORPUSCULAR VOLUME 105.3 FL (78-98); MEAN PLATELET VOLUME 9.8 FL (7.4-10.4); MONOCYTES # (AUTO) 0.5 X10'3 (0-0.9); MONOCYTES % (AUTO) 8.5 % (2-12); NEUTROPHILS # (AUTO) 2.9 X10'3 (1.8-7.7); NEUTROPHILS % (AUTO) 55.5 % (42-75); PLATELET COUNT 158 X10'3 (140-440); RED BLOOD COUNT 3.67 X10'6 (4.70-6.10); RED CELL DISTRIBUTION WIDTH 13.7 % (11.5-14.5); WHITE BLOOD COUNT 5.3 X10'3 (4.5-11.0)
[2019-02-07 02:36] LABS: ALANINE AMINOTRANSFERASE 32 U/L (12-78); ALBUMIN/GLOBULIN RATIO 1.4 (1.1-1.5); ALKALINE PHOSPHATASE 76 IU/L (46-116); ANION GAP 3 (8-16); ASPARTATE AMINO TRANSFERASE 85 U/L (10-37); BILIRUBIN,TOTAL 0.8 MG/DL (0.1-1.0); BLOOD UREA NITROGEN 7 MG/DL (7-18); BUN/CREATININE RATIO 6.7 (5.4-32.0); CALCIUM 8.8 MG/DL (8.5-10.1); CHLORIDE 103 MMOL/L (99-107); CREATININE 1.04 MG/DL (0.60-1.10); GLUCOSE 92 MG/DL (70-104); POTASSIUM 3.5 MMOL/L (3.5-5.1); SODIUM 140 MMOL/L (135-145); TOTAL CARBON DIOXIDE 33.7 MMOL/L (24-32); TOTAL PROTEIN 6.8 G/DL (6.4-8.2); eGFR 73 ML/MIN
[2019-02-07 02:40] LABS: ABG BASE EXCESS 1.9 mmol/L (-2.0-3.0); ABG HCO3 28.4 mmol/L (22.0-26.0); ABG PCO2 (T) 50.9 mmHg (35.0-45.0); ABG PH (T) 7.361 (7.350-7.450); ABG PO2 (T) 74.3 mmHg (83-108); FCOHb 2.7 % (0.5-1.5); FLOW 4 L/min; FO2Hb 93.4 % (94-100); PATIENT TEMPERATURE 36.2; RESPIRATORY RATE (OBSERVED) 16 b/min; TOTAL HEMOGLOBIN 12.6 G/dl (14.0-17.9)
[2019-02-07 02:44] LABS: MAGNESIUM 1.8 MG/DL (1.5-2.4)
[2019-02-07 04:11] LABS: CLARITY,URINE CLEAR (Clear); COLOR,URINE YELLOW (Yellow); GLUCOSE, URINE NEGATIVE (Neg); KETONES,URINE TRACE mg/dl (Neg); LEUKOCYTE ESTERASE ,URINE NEGATIVE (Neg); NITRITES, URINE NEGATIVE (Neg); OCCULT BLOOD,URINE NEGATIVE (Neg); PH,URINE 6.5 (4.8-8.0); PROTEIN,URINE NEGATIVE (Neg); UA COLLECTION TYPE URINAL; UROBILINOGEN,URINE 0.2 E.U/dL (0.2-1.0)
--- NOTE | 2019-02-07 04:23 | NUR ---
Call out made to pt's daughter Blanca re pt's transportation back home. Daughter states that she does not have a car and that I was calling the wrong number. She states that her sister, Bety, has a vehicle and she would be the one called. Blanca also states that her sister will not pick up driver her phone at this time and that her father will just have to wait until somebody gets there. Daughter was informed that her father needs his home O2 for transport. She then states that his father should just be given a taxi ride since medicare pays for it.
--- NOTE | 2019-02-07 04:26 | NUR ---
Call out placed to kathryn Albert. No answer. Message left.
--- NOTE | 2019-02-07 05:25 | NUR ---
[facility] called at this time per pt's request for transport. Unable to reach.
[2019-02-07 05:32] VITALS: BP 120/61
--- NOTE | 2019-02-07 06:03 | NUR ---
Received call back from Cally and she states that she will provide transportation for her father. ETA: [id number].
--- NOTE | 2019-02-07 07:10 | NUR ---
PATIENT IS WAITING FOR HIS DAUGHTER TO PROVIDE TRANSPORTATION. DEPARTED AMBULATORY IN STABLE CONDITION.
== END 2019-02-07 07:22 | disposition home or self-care (01) ==
LOC: ER 01:22
DX: J20.9 Acute bronchitis, unspecified (principal); E03.9 Hypothyroidism, unspecified; I25.10 Atherosclerotic heart disease of native coronary artery without angina pectoris; I10 Essential (primary) hypertension; I25.2 Old myocardial infarction; J44.9 Chronic obstructive pulmonary disease, unspecified; G89.29 Other chronic pain; F41.9 Anxiety disorder, unspecified; F32.9 Major depressive disorder, single episode, unspecified; F12.90 Cannabis use, unspecified, uncomplicated; F15.90 Other stimulant use, unspecified, uncomplicated; Z86.19 Personal history of other infectious and parasitic diseases; Z98.890 Other specified postprocedural states; Z59.0 Homelessness; Z56.0 Unemployment, unspecified; Z88.8 Allergy status to other drugs, medicaments and biological substances; Z79.82 Long term (current) use of aspirin; Z79.899 Other long term (current) drug therapy
CPT/HCPCS: 36415; 36600; 71045; 80053; 81003; 82803; 83605; 83735; 84145; 84443; 85018; 85025; 87040; 93005; 94640; 94760; 99284